=== PATIENT | female | born 1970 | race Caucasian/White ===

== ENCOUNTER 2024-06-20 09:08 | Outpatient (CLI) | payer BC, SELFPAY | END 2024-06-20 09:09 | disposition home or self-care (01) | LOC: NFLDREF 09:09 | PROVIDERS: PCP Family Medicine; Visit Provider Physician Assistant | DX: E03.9 Hypothyroidism, unspecified (principal); Z13.6 Encounter for screening for cardiovascular disorders; Z13.1 Encounter for screening for diabetes mellitus | CPT/HCPCS: 80061; 82947; 84443 ==